=== PATIENT | female | born 1955 | race Caucasian/White ===

== ENCOUNTER 2019-09-14 09:33 | Emergency (ER) | payer OTHER ==
[2019-09-14 09:47] VITALS: BP 137/65; PULSE 86
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
--- NOTE | 2019-09-14 10:57 | CR ---
Chest: Frontal view of the chest was obtained. Comparison: No prior chest imaging. Heart size and mediastinum are normal. Lungs are clear. Bony structures are grossly intact. Impression: 1. Nothing acute is seen on frontal chest x-ray. Diagnostic code #1 This report was dictated in [place] Standard Time
--- NOTE | 2019-09-14 10:57 | CR ---
Right hand: 3 views of the right hand were obtained. Comparison: No previous hand exam. Soft tissue swelling is identified. Joint spaces are preserved. No acute fracture, dislocation or other bony abnormality is appreciated. Impression: 1. Soft tissue swelling. 2. No acute bony abnormality is appreciated. Diagnostic code #2 This report was dictated in [place] Standard Time
== END 2019-09-14 11:07 | disposition home or self-care (01) ==
LOC: MW.ED 09:33
DX: S51.812A Laceration without foreign body of left forearm, initial encounter (principal); S61.511A Laceration without foreign body of right wrist, initial encounter; S20.219A Contusion of unspecified front wall of thorax, initial encounter; S30.1XXA Contusion of abdominal wall, initial encounter; F17.210 Nicotine dependence, cigarettes, uncomplicated; Y04.8XXA Assault by other bodily force, initial encounter
CPT/HCPCS: 71045; 71045-26; 73130-26-RT; 73130-RT; 99282; 99284-25